=== PATIENT | female | born 1955 | race Caucasian/White ===

== ENCOUNTER 2020-06-13 14:22 | Outpatient (REF) | payer MEDICAID, SELFPAY ==
[2020-06-13 16:13] LABS: MANUAL DIFF FLAG NO
[2020-06-13 16:14] LABS: Basophils Percent Auto 0.4 % (0-2); Eosinophils Percent Auto 0.6 % (0-4); Hematocrit 40.4 % (37-47); Hemoglobin 12.9 g/dl (12.0-16.0); Imm Gran Abs Auto 0.05 X10*3/uL (0.00-0.03); Lymphocytes Absolute Auto 1.1 X10*3/uL (1.2-4.9); Lymphocytes Percent Auto 23.4 % (20-40); Mean Corpuscular HGB Conc 31.9 g/dl (31.0-35.0); Mean Corpuscular Hemoglobin 31.4 pg (27.0-33.0); Mean Corpuscular Volume 98.3 fL (80-98); Mean Platelet Volume 9.6 fL (9.4-12.3); Monocytes Absolute Auto 0.5 X10*3/uL (0.1-1.2); Monocytes Percent Auto 11.2 % (2-11); Neutrophils Absolute Auto 3.1 X10*3/uL (2.0-8.3); Neutrophils Percent Auto 63.4 % (45-73); Platelet Count 256 X10*3/uL (160-400); Red Blood Count 4.11 X10*6/uL (4.20-5.50); Red Cell Distribution Width 14.4 % (11.0-16.0); White Blood Count 4.8 X10*3/uL (4.8-10.8)
[2020-06-13 16:38] LABS: C Reactive Protein 0.18 mg/dL (< or = 0.50)
[2020-06-13 20:01] LABS: Alanine Aminotransferase 20 U/L (0-31); Albumin Level 4.8 g/dL (3.5-5.0); Alkaline Phosphatase 52 U/L (39-117); Anion Gap 15 (12-20); Aspartate Amino Transferase 16 U/L (5-31); Blood Urea Nitrogen 6 mg/dL (9-16); Calcium 9.3 mg/dL (8.4-10.2); Carbon Dioxide 26 mmol/L (22-29); Chloride 103 mmol/L (96-108); Estimated Glomerular Filt Rate > 60; Glucose Random 151 mg/dL (60-115); Potassium 4.1 mmol/l (3.3-5.1); Sodium 140 mmol/L (135-145); Total Protein 7.3 g/dL (6.5-8.0)
== END 2020-06-13 14:23 | disposition home or self-care (01) ==
LOC: HO.LAB 14:22
PROVIDERS: PCP Nurse Practitioner; Referring Provider Nurse Practitioner; Visit Provider Student in an Organized Health Care Education/Training Program
DX: M05.9 Rheumatoid arthritis with rheumatoid factor, unspecified (principal); M17.0 Bilateral primary osteoarthritis of knee; Z79.899 Other long term (current) drug therapy
CPT/HCPCS: 36415; 80053; 85025; 86140; 99214

== ENCOUNTER 2020-09-12 13:36 | Outpatient (REF) | payer MEDICAID, SELFPAY ==
[2020-09-12 14:48] LABS: MANUAL DIFF FLAG NO
[2020-09-12 15:01] LABS: Basophils Percent Auto 0.3 % (0-2); Eosinophils Absolute Auto 0.1 X10*3/uL (0.0-0.4); Hematocrit 42.4 % (37-47); Hemoglobin 13.7 g/dl (12.0-16.0); Imm Gran Abs Auto 0.04 X10*3/uL (0.00-0.03); Imm Gran Pct Auto 0.7 % (0.0-0.4); Lymphocytes Absolute Auto 0.8 X10*3/uL (1.2-4.9); Lymphocytes Percent Auto 12.6 % (20-40); Mean Corpuscular HGB Conc 32.3 g/dl (31.0-35.0); Mean Corpuscular Hemoglobin 32.3 pg (27.0-33.0); Mean Platelet Volume 9.6 fL (9.4-12.3); Monocytes Absolute Auto 0.6 X10*3/uL (0.1-1.2); Monocytes Percent Auto 9.7 % (2-11); Neutrophils Absolute Auto 4.6 X10*3/uL (2.0-8.3); Neutrophils Percent Auto 75.7 % (45-73); Platelet Count 259 X10*3/uL (160-400); Red Blood Count 4.24 X10*6/uL (4.20-5.50); Red Cell Distribution Width 14.6 % (11.0-16.0); White Blood Count 6.1 X10*3/uL (4.8-10.8)
[2020-09-12 15:17] LABS: Alanine Aminotransferase 22 U/L (0-31); Albumin Level 4.7 g/dL (3.5-5.0); Alkaline Phosphatase 59 U/L (39-117); Anion Gap 16 (12-20); Aspartate Amino Transferase 19 U/L (5-31); Bilirubin Total 1.3 mg/dL (0.0-1.0); Blood Urea Nitrogen 11 mg/dL (9-16); C Reactive Protein 0.12 mg/dL (< or = 0.50); Calcium 9.4 mg/dL (8.4-10.2); Carbon Dioxide 26 mmol/L (22-29); Chloride 102 mmol/L (96-108); Estimated Glomerular Filt Rate > 60; Glucose Random 175 mg/dL (60-115); Potassium 4.3 mmol/l (3.3-5.1); Sodium 140 mmol/L (135-145); Total Protein 7.5 g/dL (6.5-8.0)
[2020-09-12 15:45] LABS: Erythrocyte Sedimentation Rate 7 MM/HR (0-20)
== END 2020-09-12 13:37 | disposition home or self-care (01) ==
LOC: HO.LAB 13:36
PROVIDERS: PCP Nurse Practitioner; Referring Provider Nurse Practitioner; Visit Provider Student in an Organized Health Care Education/Training Program
DX: M05.9 Rheumatoid arthritis with rheumatoid factor, unspecified (principal); Z79.899 Other long term (current) drug therapy
CPT/HCPCS: 36415; 80053; 85025; 85652; 86140; 99212

== ENCOUNTER 2020-12-10 12:21 | Outpatient (REF) | payer MEDICARE, MEDICAID, SELFPAY ==
[2020-12-10 13:50] LABS: MANUAL DIFF FLAG NO
[2020-12-10 13:56] LABS: Basophils Percent Auto 0.6 % (0-2); Eosinophils Percent Auto 0.6 % (0-4); Hematocrit 41.1 % (37-47); Hemoglobin 13.2 g/dl (12.0-16.0); Imm Gran Abs Auto 0.05 X10*3/uL (0.00-0.03); Imm Gran Pct Auto 0.9 % (0.0-0.4); Lymphocytes Absolute Auto 1.4 X10*3/uL (1.2-4.9); Lymphocytes Percent Auto 26.2 % (20-40); Mean Corpuscular HGB Conc 32.1 g/dl (31.0-35.0); Mean Corpuscular Hemoglobin 31.9 pg (27.0-33.0); Mean Corpuscular Volume 99.3 fL (80-98); Mean Platelet Volume 10.1 fL (9.4-12.3); Monocytes Absolute Auto 0.6 X10*3/uL (0.1-1.2); Monocytes Percent Auto 10.8 % (2-11); Neutrophils Absolute Auto 3.2 X10*3/uL (2.0-8.3); Neutrophils Percent Auto 60.9 % (45-73); Platelet Count 265 X10*3/uL (160-400); Red Blood Count 4.14 X10*6/uL (4.20-5.50); Red Cell Distribution Width 14.5 % (11.0-16.0); White Blood Count 5.3 X10*3/uL (4.8-10.8)
[2020-12-10 14:20] LABS: Alanine Aminotransferase 24 U/L (0-31); Albumin Level 4.6 g/dL (3.5-5.0); Alkaline Phosphatase 54 U/L (39-117); Anion Gap 18 (12-20); Aspartate Amino Transferase 19 U/L (5-31); Bilirubin Total 1.3 mg/dL (0.0-1.0); Blood Urea Nitrogen 12 mg/dL (9-16); C Reactive Protein 0.22 mg/dL (< or = 0.50); Calcium 9.5 mg/dL (8.4-10.2); Carbon Dioxide 22 mmol/L (22-29); Chloride 106 mmol/L (96-108); Estimated Glomerular Filt Rate > 60; Glucose Random 177 mg/dL (60-115); Sodium 142 mmol/L (135-145); Total Protein 7.2 g/dL (6.5-8.0)
[2020-12-10 14:40] LABS: Erythrocyte Sedimentation Rate 10 MM/HR (0-20)
== END 2020-12-10 12:22 | disposition home or self-care (01) ==
LOC: HO.LAB 12:21
PROVIDERS: Visit Provider Student in an Organized Health Care Education/Training Program
DX: M05.9 Rheumatoid arthritis with rheumatoid factor, unspecified (principal); Z79.899 Other long term (current) drug therapy
CPT/HCPCS: 36415; 80053; 85025; 85652; 86140; 99212

== ENCOUNTER 2021-03-19 12:34 | Outpatient (REF) | payer MEDICARE, MEDICAID, SELFPAY ==
[2021-03-19 13:58] LABS: MANUAL DIFF FLAG NO
[2021-03-19 14:05] LABS: Basophils Percent Auto 0.4 % (0-2); Eosinophils Percent Auto 0.6 % (0-4); Hematocrit 40.7 % (37-47); Hemoglobin 13.3 g/dl (12.0-16.0); Imm Gran Abs Auto 0.06 X10*3/uL (0.00-0.03); Imm Gran Pct Auto 1.1 % (0.0-0.4); Lymphocytes Absolute Auto 0.9 X10*3/uL (1.2-4.9); Lymphocytes Percent Auto 16.4 % (20-40); Mean Corpuscular HGB Conc 32.7 g/dl (31.0-35.0); Mean Corpuscular Hemoglobin 31.9 pg (27.0-33.0); Mean Corpuscular Volume 97.6 fL (80-98); Mean Platelet Volume 9.6 fL (9.4-12.3); Monocytes Absolute Auto 0.5 X10*3/uL (0.1-1.2); Monocytes Percent Auto 9.8 % (2-11); Neutrophils Absolute Auto 3.8 X10*3/uL (2.0-8.3); Neutrophils Percent Auto 71.7 % (45-73); Platelet Count 231 X10*3/uL (160-400); Red Blood Count 4.17 X10*6/uL (4.20-5.50); Red Cell Distribution Width 14.2 % (11.0-16.0); White Blood Count 5.3 X10*3/uL (4.8-10.8)
[2021-03-19 14:26] LABS: Alanine Aminotransferase 20 U/L (0-31); Albumin Level 4.7 g/dL (3.5-5.0); Alkaline Phosphatase 51 U/L (39-117); Anion Gap 15 (12-20); Aspartate Amino Transferase 20 U/L (5-31); Bilirubin Total 1.5 mg/dL (0.0-1.0); Blood Urea Nitrogen 14 mg/dL (9-16); C Reactive Protein 0.23 mg/dL (< or = 0.50); Calcium 9.8 mg/dL (8.4-10.2); Carbon Dioxide 24 mmol/L (22-29); Chloride 103 mmol/L (96-108); Estimated Glomerular Filt Rate > 60; Glucose Random 142 mg/dL (60-115); Potassium 3.3 mmol/L (3.3-5.1); Sodium 139 mmol/L (135-145); Total Protein 7.3 g/dL (6.5-8.0)
[2021-03-19 14:43] LABS: Erythrocyte Sedimentation Rate 10 MM/HR (0-20)
== END 2021-03-19 12:35 | disposition home or self-care (01) ==
LOC: HO.LAB 12:34
PROVIDERS: Visit Provider Student in an Organized Health Care Education/Training Program
DX: M05.9 Rheumatoid arthritis with rheumatoid factor, unspecified (principal); Z79.899 Other long term (current) drug therapy
CPT/HCPCS: 36415; 80053; 85025; 85652; 86140; 99212

== ENCOUNTER 2021-06-17 13:13 | Outpatient (REF) | payer MEDICARE, MEDICAID, SELFPAY ==
[2021-06-17 14:22] LABS: MANUAL DIFF FLAG NO
[2021-06-17 14:43] LABS: Basophils Percent Auto 0.5 % (0-2); Eosinophils Percent Auto 0.5 % (0-4); Hematocrit 41.7 % (37-47); Hemoglobin 13.4 g/dl (12.0-16.0); Imm Gran Abs Auto 0.06 X10*3/uL (0.00-0.03); Lymphocytes Absolute Auto 0.6 X10*3/uL (1.2-4.9); Lymphocytes Percent Auto 9.9 % (20-40); Mean Corpuscular HGB Conc 32.1 g/dl (31.0-35.0); Mean Corpuscular Hemoglobin 31.2 pg (27.0-33.0); Mean Corpuscular Volume 97.2 fL (80-98); Mean Platelet Volume 9.8 fL (9.4-12.3); Monocytes Absolute Auto 0.6 X10*3/uL (0.1-1.2); Monocytes Percent Auto 10.6 % (2-11); Neutrophils Absolute Auto 4.7 X10*3/uL (2.0-8.3); Neutrophils Percent Auto 77.5 % (45-73); Platelet Count 229 X10*3/uL (160-400); Red Blood Count 4.29 X10*6/uL (4.20-5.50); Red Cell Distribution Width 14.2 % (11.0-16.0)
[2021-06-17 15:07] LABS: Alanine Aminotransferase 25 U/L (0-31); Albumin Level 4.4 g/dL (3.5-5.0); Alkaline Phosphatase 55 U/L (39-117); Anion Gap 15 (12-20); Aspartate Amino Transferase 21 U/L (5-31); Bilirubin Total 1.3 mg/dL (0.0-1.0); Blood Urea Nitrogen 9 mg/dL (9-16); C Reactive Protein 0.35 mg/dL (< or = 0.50); Calcium 9.3 mg/dL (8.4-10.2); Carbon Dioxide 27 mmol/L (22-29); Chloride 104 mmol/L (96-108); Cholesterol 220 mg/dL; Estimated Glomerular Filt Rate > 60; Glucose Random 191 mg/dL (60-115); HDL Cholesterol 54 mg/dL; LDL Cholesterol Calculated 117 mg/dl; Potassium 3.4 mmol/L (3.3-5.1); Sodium 143 mmol/L (135-145); Total Protein 6.9 g/dL (6.5-8.0); Triglycerides 248 mg/dL
[2021-06-17 15:56] LABS: Reflex LDLD? No
[2021-06-17 16:27] LABS: Erythrocyte Sedimentation Rate 10 MM/HR (0-20)
== END 2021-06-17 13:14 | disposition home or self-care (01) ==
LOC: HO.LAB 13:13
PROVIDERS: PCP Nurse Practitioner; Visit Provider Nurse Practitioner Family
DX: M05.9 Rheumatoid arthritis with rheumatoid factor, unspecified (principal); Z79.899 Other long term (current) drug therapy
CPT/HCPCS: 36415; 80053; 80061; 85025; 85652; 86140; 99212

== ENCOUNTER 2021-09-15 13:32 | Outpatient (REF) | payer MEDICARE, MEDICAID, SELFPAY ==
[2021-09-15 14:45] LABS: MANUAL DIFF FLAG NO
[2021-09-15 15:00] LABS: Basophils Percent Auto 0.2 % (0-2); Eosinophils Percent Auto 0.4 % (0-4); Hematocrit 38.3 % (37.0-47.0); Hemoglobin 12.3 g/dl (12.0-16.0); Imm Gran Abs Auto 0.04 X10*3/uL (0.00-0.03); Imm Gran Pct Auto 0.7 % (0.0-0.4); Lymphocytes Absolute Auto 0.1 X10*3/uL (1.2-4.9); Lymphocytes Percent Auto 2.2 % (20-40); Mean Corpuscular HGB Conc 32.1 g/dl (31.0-35.0); Mean Corpuscular Hemoglobin 31.9 pg (27.0-33.0); Mean Corpuscular Volume 99.5 fL (80.0-98.0); Mean Platelet Volume 9.9 fL (9.4-12.3); Monocytes Absolute Auto 0.4 X10*3/uL (0.1-1.2); Monocytes Percent Auto 6.9 % (2-11); Neutrophils Absolute Auto 4.8 x10*3/uL (2.0-8.3); Neutrophils Percent Auto 89.6 % (45-73); Platelet Count 205 X10*3/uL (160-400); Red Blood Count 3.85 X10*6/uL (4.20-5.50); Red Cell Distribution Width 14.5 % (11.0-16.0); White Blood Count 5.4 X10*3/uL (4.8-10.8)
[2021-09-15 15:21] LABS: Alanine Aminotransferase 40 U/L (0-31); Albumin Level 4.5 g/dL (3.5-5.0); Alkaline Phosphatase 47 U/L (39-117); Anion Gap 15 (12-20); Aspartate Amino Transferase 84 U/L (5-31); Bilirubin Total 1.5 mg/dL (0.0-1.0); Blood Urea Nitrogen 7 mg/dL (9-16); C Reactive Protein 0.61 mg/dL (< or = 0.50); Calcium 9.5 mg/dL (8.4-10.2); Carbon Dioxide 27 mmol/L (22-29); Chloride 105 mmol/L (96-108); Estimated Glomerular Filt Rate > 60; Glucose Random 137 mg/dL (60-115); Potassium 3.8 mmol/L (3.3-5.1); Sodium 143 mmol/L (135-145); Total Protein 7.1 g/dL (6.5-8.0)
[2021-09-15 15:35] LABS: Erythrocyte Sedimentation Rate 11 MM/HR (0-20)
== END 2021-09-15 13:33 | disposition home or self-care (01) ==
LOC: HO.LAB 13:32
PROVIDERS: PCP Nurse Practitioner; Visit Provider Nurse Practitioner Family
DX: M05.9 Rheumatoid arthritis with rheumatoid factor, unspecified (principal); Z79.899 Other long term (current) drug therapy
CPT/HCPCS: 36415; 80053; 85025; 85652; 86140; 99212

== ENCOUNTER 2021-12-10 09:45 | Outpatient (REF) | payer MEDICARE, MEDICAID, SELFPAY ==
[2021-12-10 11:05] LABS: Alanine Aminotransferase 27 U/L (0-31); Albumin Level 4.4 g/dL (3.5-5.0); Alkaline Phosphatase 47 U/L (39-117); Anion Gap 14 (12-20); Aspartate Amino Transferase 20 U/L (5-31); Bilirubin Total 1.1 mg/dL (0.0-1.0); Blood Urea Nitrogen 7 mg/dL (9-16); Calcium 9.7 mg/dL (8.4-10.2); Carbon Dioxide 26 mmol/L (22-29); Chloride 104 mmol/L (96-108); Estimated Glomerular Filt Rate > 60; Glucose Random 169 mg/dL (60-115); Potassium 3.7 mmol/L (3.3-5.1); Sodium 140 mmol/L (135-145); Total Protein 7.2 g/dL (6.5-8.0)
[2021-12-10 11:21] LABS: Vitamin D 25-OH Total 34.2 ng/mL (>30)
== END 2021-12-10 09:46 | disposition home or self-care (01) ==
LOC: HO.LAB 09:45
PROVIDERS: PCP Nurse Practitioner; Visit Provider Nurse Practitioner Family
DX: M17.0 Bilateral primary osteoarthritis of knee (principal); R74.8 Abnormal levels of other serum enzymes
CPT/HCPCS: 36415; 80053; 82306

== ENCOUNTER → 2021-12-18 12:36 | Outpatient (BNVA) | payer MEDICARE, MEDICAID, SELFPAY | PROVIDERS: PCP Nurse Practitioner; Visit Provider Nurse Practitioner Family | DX: M05.9 Rheumatoid arthritis with rheumatoid factor, unspecified (principal); Z79.899 Other long term (current) drug therapy | CPT/HCPCS: Q3014 ==

== ENCOUNTER → 2022-03-19 12:18 | Outpatient (BNVA) | payer MEDICARE, MEDICAID, SELFPAY | PROVIDERS: PCP Nurse Practitioner; Visit Provider Nurse Practitioner Family | DX: M05.9 Rheumatoid arthritis with rheumatoid factor, unspecified (principal); Z79.899 Other long term (current) drug therapy | CPT/HCPCS: Q3014 ==

== ENCOUNTER 2022-03-19 12:47 | Outpatient (REF) | payer MEDICARE, MEDICAID, SELFPAY ==
[2022-03-19 13:40] LABS: MANUAL DIFF FLAG NO
[2022-03-19 13:49] LABS: Basophils Percent Auto 0.5 % (0-2); Eosinophils Percent Auto 0.5 % (0-4); Hematocrit 44.5 % (37.0-47.0); Hemoglobin 14.2 g/dl (12.0-16.0); Imm Gran Abs Auto 0.03 X10*3/uL (0.00-0.03); Imm Gran Pct Auto 0.5 % (0.0-0.4); Lymphocytes Absolute Auto 0.8 X10*3/uL (1.2-4.9); Lymphocytes Percent Auto 14.4 % (20-40); Mean Corpuscular HGB Conc 31.9 g/dl (31.0-35.0); Mean Corpuscular Hemoglobin 30.3 pg (27.0-33.0); Mean Corpuscular Volume 94.9 fL (80.0-98.0); Mean Platelet Volume 10.3 fL (9.4-12.3); Monocytes Absolute Auto 0.7 X10*3/uL (0.1-1.2); Monocytes Percent Auto 11.8 % (2-11); Neutrophils Percent Auto 72.3 % (45-73); Platelet Count 230 X10*3/uL (160-400); Red Blood Count 4.69 X10*6/uL (4.20-5.50); Red Cell Distribution Width 14.4 % (11.0-16.0); White Blood Count 5.6 X10*3/uL (4.8-10.8)
[2022-03-19 14:16] LABS: Alanine Aminotransferase 19 U/L (0-31); Aspartate Amino Transferase 19 U/L (5-31); Estimated Glomerular Filt Rate > 60
[2022-03-19 14:37] LABS: Erythrocyte Sedimentation Rate 9 MM/HR (0-20)
== END 2022-03-19 12:48 | disposition home or self-care (01) ==
LOC: HO.10HDL 12:47
PROVIDERS: Visit Provider Nurse Practitioner Family
DX: M05.9 Rheumatoid arthritis with rheumatoid factor, unspecified (principal); Z79.899 Other long term (current) drug therapy
CPT/HCPCS: 36415; 82565; 84450; 84460; 85025; 85652; 86140

== ENCOUNTER → 2022-06-02 13:21 | Outpatient (BNVA) | payer MEDICARE, MEDICAID, SELFPAY | PROVIDERS: PCP Nurse Practitioner; Visit Provider Nurse Practitioner Family | DX: M05.9 Rheumatoid arthritis with rheumatoid factor, unspecified (principal); Z79.899 Other long term (current) drug therapy | CPT/HCPCS: 99212 ==

== ENCOUNTER → 2022-09-02 13:01 | Outpatient (BNVA) | payer MEDICARE, MEDICAID, SELFPAY | PROVIDERS: PCP Nurse Practitioner; Visit Provider Nurse Practitioner Family | DX: M05.9 Rheumatoid arthritis with rheumatoid factor, unspecified (principal); Z79.899 Other long term (current) drug therapy | CPT/HCPCS: 99212 ==

== ENCOUNTER → 2022-11-10 12:47 | Outpatient (BNVA) | payer MEDICARE, MEDICAID, SELFPAY | PROVIDERS: PCP Nurse Practitioner; Visit Provider Nurse Practitioner Family | DX: M05.9 Rheumatoid arthritis with rheumatoid factor, unspecified (principal); Z79.899 Other long term (current) drug therapy | CPT/HCPCS: 99212 ==

== ENCOUNTER → 2023-03-11 14:24 | Outpatient (BNVA) | payer MEDICARE, MEDICAID, SELFPAY | PROVIDERS: PCP Nurse Practitioner; Visit Provider Student in an Organized Health Care Education/Training Program | DX: M05.9 Rheumatoid arthritis with rheumatoid factor, unspecified (principal); R25.1 Tremor, unspecified; Z79.899 Other long term (current) drug therapy; Z13.820 Encounter for screening for osteoporosis | CPT/HCPCS: 99212 ==

== ENCOUNTER 2023-03-11 14:25 | Outpatient (AMB) | payer MEDICARE, MEDICAID, SELFPAY ==
[2023-03-11 14:24] VITALS: BP 112/66; PULSE 88; TEMP 36.2; O2SAT 94; BMI 29.8
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
== END 2023-03-11 14:55 | disposition home or self-care (01) ==
PROVIDERS: PCP Nurse Practitioner; Visit Provider Student in an Organized Health Care Education/Training Program
DX: M05.79 Rheumatoid arthritis with rheumatoid factor of multiple sites without organ or systems involvement (principal); Z79.899 Other long term (current) drug therapy; Z13.820 Encounter for screening for osteoporosis; R25.1 Tremor, unspecified
CPT/HCPCS: 99214

== ENCOUNTER → 2023-06-10 13:11 | Outpatient (BNVA) | payer MEDICARE, MEDICAID, SELFPAY | PROVIDERS: PCP Nurse Practitioner; Visit Provider Student in an Organized Health Care Education/Training Program ==

== ENCOUNTER 2023-11-24 09:57 | Outpatient (AMB) | payer MEDICARE, MEDICAID, SELFPAY ==
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
[2023-11-24 10:01] VITALS: BP 112/68; PULSE 89; O2SAT 97; BMI 30.7
== END 2023-11-24 10:29 | disposition home or self-care (01) ==
PROVIDERS: PCP Nurse Practitioner; Visit Provider Student in an Organized Health Care Education/Training Program
DX: M05.79 Rheumatoid arthritis with rheumatoid factor of multiple sites without organ or systems involvement (principal); Z79.899 Other long term (current) drug therapy; Z13.820 Encounter for screening for osteoporosis; M54.41 Lumbago with sciatica, right side; G89.29 Other chronic pain
CPT/HCPCS: 99214

== ENCOUNTER → 2023-11-24 09:57 | Outpatient (BNVA) | payer MEDICARE, MEDICAID, SELFPAY | PROVIDERS: PCP Nurse Practitioner; Visit Provider Student in an Organized Health Care Education/Training Program | DX: M05.9 Rheumatoid arthritis with rheumatoid factor, unspecified (principal); Z13.820 Encounter for screening for osteoporosis; M54.41 Lumbago with sciatica, right side; G89.29 Other chronic pain; Z79.899 Other long term (current) drug therapy | CPT/HCPCS: 99212 ==

== ENCOUNTER 2024-05-24 09:54 | Outpatient (AMB) | payer MEDICARE, MEDICAID, SELFPAY ==
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
[2024-05-24 10:02] VITALS: BP 112/60; PULSE 89; O2SAT 99; BMI 31.1
== END 2024-05-24 10:23 | disposition home or self-care (01) ==
PROVIDERS: PCP Nurse Practitioner; Visit Provider Student in an Organized Health Care Education/Training Program
DX: M05.79 Rheumatoid arthritis with rheumatoid factor of multiple sites without organ or systems involvement (principal); Z79.899 Other long term (current) drug therapy; Z13.820 Encounter for screening for osteoporosis
CPT/HCPCS: 99214

== ENCOUNTER → 2024-05-24 09:54 | Outpatient (BNVA) | payer MEDICARE, MEDICAID, SELFPAY | PROVIDERS: PCP Nurse Practitioner; Visit Provider Student in an Organized Health Care Education/Training Program | DX: M05.9 Rheumatoid arthritis with rheumatoid factor, unspecified (principal); Z79.899 Other long term (current) drug therapy; Z13.820 Encounter for screening for osteoporosis | CPT/HCPCS: 99212 ==

== ENCOUNTER 2024-09-06 09:45 | Outpatient (AMB) | payer MEDICARE, MEDICAID, SELFPAY ==
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
[2024-09-06 10:32] VITALS: BP 112/64; PULSE 85; O2SAT 96; BMI 31.1
== END 2024-09-06 10:56 | disposition home or self-care (01) ==
PROVIDERS: PCP Nurse Practitioner; Visit Provider Student in an Organized Health Care Education/Training Program
DX: M05.79 Rheumatoid arthritis with rheumatoid factor of multiple sites without organ or systems involvement (principal); Z79.899 Other long term (current) drug therapy; Z13.820 Encounter for screening for osteoporosis
CPT/HCPCS: 99214

== ENCOUNTER 2024-09-06 11:06 | Outpatient (REF) | payer MEDICARE, MEDICAID, SELFPAY ==
[2024-09-06 12:56] LABS: MANUAL DIFF FLAG NO
[2024-09-06 13:06] LABS: Basophils Absolute Auto 0.1 X10*3/uL (0.0-0.2); Eosinophils Absolute Auto 0.1 X10*3/uL (0.0-0.4); Hematocrit 45.4 % (37.0-47.0); Hemoglobin 14.3 g/dl (12.0-16.0); Imm Gran Abs Auto 0.04 X10*3/uL (0.00-0.03); Imm Gran Pct Auto 0.8 % (0.0-0.4); Lymphocytes Absolute Auto 0.6 X10*3/uL (1.2-4.9); Lymphocytes Percent Auto 12.2 % (20-40); Mean Corpuscular HGB Conc 31.5 g/dl (31.0-35.0); Mean Corpuscular Hemoglobin 30.7 pg (27.0-33.0); Mean Corpuscular Volume 97.4 fL (80.0-98.0); Mean Platelet Volume 9.4 fL (9.4-12.3); Monocytes Absolute Auto 0.6 X10*3/uL (0.1-1.2); Neutrophils Absolute Auto 3.5 x10*3/uL (2.0-8.3); Platelet Count 241 X10*3/uL (160-400); Red Blood Count 4.66 X10*6/uL (4.20-5.50); Red Cell Distribution Width 15.1 % (11.0-16.0); White Blood Count 4.8 X10*3/uL (4.8-10.8)
[2024-09-06 13:12] LABS: Alanine Aminotransferase 16 U/L (0-31); Albumin Level 4.7 g/dL (3.5-5.0); Alkaline Phosphatase 59 U/L (39-117); Anion Gap 11 (12-20); Aspartate Amino Transferase 23 U/L (5-31); Bilirubin Total 0.9 mg/dL (0.0-1.0); Blood Urea Nitrogen 9 mg/dL (9-16); C Reactive Protein < 0.10 mg/dL (< or = 0.50); Calcium 9.3 mg/dL (8.4-10.2); Carbon Dioxide 28 mmol/L (22-29); Chloride 108 mmol/L (96-108); Estimated Glomerular Filt Rate > 60; Glucose Random 163 mg/dL (60-115); Potassium 3.9 mmol/L (3.3-5.1); Sodium 143 mmol/L (135-145); Total Protein 7.7 g/dL (6.5-8.0)
[2024-09-06 13:49] LABS: Erythrocyte Sedimentation Rate 6 MM/HR (0-20)
== END 2024-09-06 11:07 | disposition home or self-care (01) ==
LOC: HO.10HDL 11:06
PROVIDERS: Visit Provider Student in an Organized Health Care Education/Training Program
DX: M05.9 Rheumatoid arthritis with rheumatoid factor, unspecified (principal); Z79.899 Other long term (current) drug therapy
CPT/HCPCS: 36415; 80053; 85025; 85652; 86140

== ENCOUNTER 2025-01-11 13:03 | Outpatient (AMB) | payer MEDICARE, MEDICAID, SELFPAY ==
--- NOTE | 2025-01-11 13:10 | A.OFFVIS_ITS ---
Intake Visit Reasons: RA Intake Note: Patient presents for RA follow up. Allergies acetaminophen [Tylenol] Allergy (Intermediate, Verified 09/06/24 10:31) Vomiting penicillin V Allergy (Mild, Verified 09/06/24 10:31) Unknown [facility] Medical History Fracture of right lower leg Osteoarthritis of knees, bilateral Seropositive rheumatoid arthritis Surgical History History of left knee replacement Social History Household Members: None Housing: Apartment Alcohol intake: never Patient Tobacco Use Status: Former Tobacco user Coding
--- NOTE | 2025-01-11 13:18 | A.OFFVIS_ITS ---
Vital Signs 01/11/25 13:19 Height 5 ft Weight 157 lb 13.616 oz BMI 30.8 BP 115/74 Blood Pressure Location Lt brachial Position Sitting Pulse 100 Pulse Source Pulse Oximeter Pulse Oximetry (%) 99 Oxygen Delivery Method Room Air Intake Visit Reasons: RA Intake Note: Patient presents for RA follow up. Allergies acetaminophen [Tylenol] Allergy (Intermediate, Verified 01/11/25 13:19) Vomiting penicillin V Allergy (Mild, Verified 01/11/25 13:19) Unknown Medication List - Last Reconciled 01/11/25 by Elsi Ramirez MD apixaban (Eliquis) 5 mg PO BID blood sugar diagnostic (True Metrix Glucose Test Strip) As directed blood-glucose meter (True Metrix Glucose Meter) As directed calcium carbonate (Tums) 200 mg PO DAILY cholecalciferol (vitamin D3) (Vitamin D3) 25 mcg PO DAILY empagliflozin (Jardiance) 25 mg PO DAILY fluticasone propionate 110 mcg/actuation (Flovent HFA) 2 puffs inhalation BID folic acid 1 mg PO DAILY furosemide 20 mg PO DAILY glipizide ER 2.5 mg PO DAILY lancets (TRUEplus Lancets) As directed levothyroxine 50 mcg PO DAILY methotrexate sodium 15 mg (6 x 2.5 mg) PO QWEEK 90 days olanzapine 20 mg PO BEDTIME olanzapine 5 mg PO DAILY PRN rosuvastatin 10 mg PO DAILY tofacitinib ER (Xeljanz XR) 11 mg PO DAILY HPI Comments Details: Patient is a 69-year-old female with diabetes, hypothyroidism, hyperlipidemia, chronic schizophrenia, hypertension, bilateral knee osteoarthritis and serop ositive rheumatoid arthritis here today for follow up Interval History: Patient last seen 09/06/[address] Mackey. At that time she was following up for her seropositive rheumatoid arthritis on methotrexate 20 mg weekly, Xeljanz 11 mg daily and folic acid daily. Labs and exam were unremarkable with respect to synovitis and methotrexate was reduced to 15 mg once weekly. States that she was admitted to the hospital for constipation and fall. Found to have a blood clot and is currently on Eliquis. Doing well on the decreased dose of methotrexate. No return of symptoms or exacerbation of symptoms Rheumatologic History: Dx RA in the Denies hx of being on injectables On Xeljanz and Mtx as far back as 2019 in these records Current Rheumatology Medication(s): Methotrexate 15 mg once weekly Xeljanz 11 mg daily Folic acid 1 mg daily [facility] Medical History Fracture of right lower leg Osteoarthritis of knees, bilateral Seropositive rheumatoid arthritis Surgical History History of left knee replacement Social History Household Members: None Housing: Apartment Alcohol intake: never Patient Tobacco Use Status: Former Tobacco user Review of Systems Const Details: Review of Systems Constitutional: Denies fever, chills, weight loss ENT: Denies vision changes, eye pain or eye redness, dental caries, dry mouth GI: Denies nausea, vomiting, diarrhea, abdominal pain, change in BM Pulm: Denies SOB, ARTEAGA, hemoptysis, wheezing Cards: Denies chest pain, palpitations Skin: Denies Raynaud's, rash, nail changes, photosensitivity, COMPUGRAPH OPERATOR: Denies headaches, weakness, paresthesias, recurrent falls MSK: as per HPI All other systems reviewed and are unremarkable except noted above Physical Exam Vital Signs: Last Vital Signs Pulse 100 01/11/25 13:19 BP 115/74 01/11/25 13:19 Pulse Ox 99 01/11/25 13:19 Oxygen Delivery Method Room Air 01/11/25 13:19 BMI result Body Mass Index 30.8 Vital signs reviewed Physical Examination CONSTITUITIONAL Patient alert and cooperative. Well appearing and in no apparent painful distress HEENT Conjunctiva and sclera clear. ?Pupils equal round and reactive to light. ?No lymphadenopathy. ? CHEST/RESPIRATORY SYSTEM Normal respiratory effort and able to speak in complete sentences. ?Clear to auscultation bilaterally. ?No crackles, rales, rhonchi, wheezes heard. CARDIAC SYSTEM Regular rate and rhythm. ?S1 and S2 heard no murmurs. ?Radial pulses intact bilaterally MSK Hands: ?Able to make a fist bilaterally. Synovial hypertrophy noted to bilateral 2nd-4th MCPs without TTP. Herbeden's nodes noted without other deformities Wrists: ?Decreased ROM bilaterally. ?No tenderness to palpation or synovitis noted to the wrists. Elbows: Full range of motion without pain. No tenderness, weakness, swelling, in creased warmth or erythema. Shoulders: Full range of active range of motion without pain. No tenderness, weakness, swelling, increased warmth or erythema. Knees: ?Limited ROM to the right knee. Without TTP of the joint. Also limited ROM to the left knee but significantly better than the right Ankles: Full range of motion. ?No tenderness, swelling, increased warmth or erythema.? Feet: ?Negative squeeze test. ?No tenderness to palpation or swelling of the MTPs. Tender points:?No tenderness to palpation of the bilateral trapezius, supraspinatus, greater trochanters, anterior costochondral junctions, bilateral gluteal areas, bilateral suboccipital muscle insertions SKIN Skin intact without rashes. Results Reviewed Results Reviewed: Laboratory Tests 09/06/24 11:12 WBC 4.8 RBC 4.66 Hgb 14.3 Hct 45.4 Plt Count 241 ESR 6 Sodium 143 Potassium 3.9 Chloride 108 Carbon Dioxide 28 BUN 9 Creatinine 0.66 AST 23 ALT 16 Alkaline Phosphatase 59 C-Reactive Protein < 0.10 Assessment & Plan Assessment & Plan (1) Seropositive rheumatoid arthritis: Code(s): M05.9 - Rheumatoid arthritis with rheumatoid factor, unspecified Category: Medical Plan: #Seropositive RA Patient is a 69 y.o. female with seropositive RA here today for follow up. Currently in remission on current regimen Plan - Xeljanz 11mg daily - Methotrexate 15 mg weekly - Folic acid 1mg - Labs: CBC, CMP, ESR, CRP, Hepatitis panel and T spot - RTC 4 months - Labs before visit: CBC, CMP, ESR, CRP (2) Osteoporosis: Comment: DEXA 05/2024: AP Spine -2.9, Left femur neck -2.9, Left femur total -2.8 Code(s): M81.0 - Age-related osteoporosis without current pathological fracture Category: Medical Qualifiers: Osteoporosis type: age-related Presence of current pathological fracture: without current pathological fracture Qualified Code(s): M81.0 - Age- related osteoporosis without current pathological fracture Plan: #Osteoporosis Patient with osteoporosis as per DEXA scan done in May. We will start her on alendronate. Patient would prefer daily alendronate versus weekly alendronate Plan - Alendronate 10mg daily - Vitamin D supplementation - Rpt DEXA 2025 (3) Osteoarthritis of knees, bilateral: Code(s): M17.0 - Bilateral primary osteoarthritis of knee Category: Medical Qualifiers: Osteoarthritis type: primary Qualified Code(s): M17.0 - Bilateral primary osteoarthritis of knee Plan: #OA bilateral knees Has flexion contracture of the right knee. Not interested in PT Encouraged continued activity as best as she can Uses a walker (4) skilled nursing methotrexate user: Code(s): Z79.899 - Other shelter (current) drug therapy Category: Medical Plan: #Long-term Current Use of Methotrexate Discussed with patient the benefits and risks of methotrexate for managing their rheumatic condition Benefits include reduced pain, reduced mortality, maintenance of remission and reduction of flares Risks include oral ulcers, photosensitivity, hepatotoxicity, hematologic toxicity, pneumonitis, flu-like symptoms (especially day after administration), nodulosis, lymphomas ? Limit alcohol and avoid Bactrim ? Monitoring: ?CBC, BMP, LFTs every 3-4 months and hepatitis serologies as needed (5) Long-term current use of Janus kinase inhibitor: Code(s): Z79.622 - termite control representative (current) use of Janus kinase inhibitor Plan: #Long-term Use of LEIDY inhibitor : Xeljanz Discussed with patient the benefits and risks of LEIDY inhibitors for the management of the rheumatic condition Benefits include reduce pain, maintenance of remission and reduction of flares Risks include thromboembolic events, skin cancer and nonmelanoma skin cancers, other forms of cancer, cardiovascular alcohol and mortality Advise patient that they are to hold the medication and for up to 1 week after a febrile illness or an open skin wound Plan I spent 30 minutes reviewing the record and labs, taking a history, examining the patient, discussing the treatment plan, ordering diagnostic work up and documenting in the medical record Orders: Orders Erythrocyte Sedimentation Rate Today E55.9 - Vitamin D deficiency, unspecified, M05.9 - Rheumatoid arthritis with rheumatoid factor, unspecified Hepatitis A,B,C Profile Today E55.9 - Vitamin D deficiency, unspecified, M05.9 - Rheumatoid arthritis with rheumatoid factor, unspecified T Spot TB Today E55.9 - Vitamin D deficiency, unspecified, M05.9 - Rheumatoid arthritis with rheumatoid factor, unspecified Vitamin D 25-OH (D2 and D3) Today E55.9 - Vitamin D deficiency, unspecified, M05.9 - Rheumatoid arthritis with rheumatoid factor, unspecified Complete Blood Count Auto Diff 4 Months E55.9 - Vitamin D deficiency, unspecified, M05.9 - Rheumatoid arthritis with rheumatoid factor, unspecified C Reactive Protein 4 Months E55.9 - Vitamin D deficiency, unspecified, M05.9 - Rheumatoid arthritis with rheumatoid factor, unspecified Erythrocyte Sedimentation Rate 4 Months E55.9 - Vitamin D deficiency, unspecified, M05.9 - Rheumatoid arthritis with rheumatoid factor, unspecified Vitamin D 25-OH (D2 and D3) 4 Months E55.9 - Vitamin D deficiency, unspecified, M05.9 - Rheumatoid arthritis with rheumatoid factor, unspecified Complete Blood Count Auto Diff Today E55.9 - Vitamin D deficiency, unspecified, M05.9 - Rheumatoid arthritis with rheumatoid factor, unspecified Comprehensive Met. Panel Today E55.9 - Vitamin D deficiency, unspecified, M05.9 - Rheumatoid arthritis with rheumatoid factor, unspecified C Reactive Protein Today E55.9 - Vitamin D deficiency, unspecified, M05.9 - Rheumatoid arthritis with rheumatoid factor, unspecified Comprehensive Met. Panel 4 Months E55.9 - Vitamin D deficiency, unspecified, M05.9 - Rheumatoid arthritis with rheumatoid factor, unspecified Medications: New alendronate 10 mg PO DAILY 90 days 90 tabs 1RF M81.0 - Age-related osteoporosis without current pathological fracture Refilled folic acid 1 mg PO DAILY 90 tabs 0RF tofacitinib ER (Xeljanz XR) 11 mg PO DAILY 90 tabs 1RF M05.9 - Rheumatoid arthritis with rheumatoid factor, unspecified methotrexate sodium 15 mg (6 x 2.5 mg) PO QWEEK 90 days 78 tabs 1RF M05.9 - Rheumatoid arthritis with rheumatoid factor, unspecified Coding Level of Care Code Est Pt Level 4 (47977) Complex EM visit Add On G2211 Diagnoses Seropositive rheumatoid arthritis M05.9 Age-related osteoporosis without current pathological fracture M81.0 Osteoporosis type: age-related Presence of current pathological fracture: without current pathological fracture Primary osteoarthritis of both knees M17.0 Osteoarthritis type: primary skilled nursing methotrexate user Z79.899 Long-term current use of Janus kinase inhibitor Z79.622
[2025-01-11 13:19] VITALS: BP 115/74; PULSE 100; O2SAT 99; BMI 30.8
== END 2025-01-11 13:55 | disposition home or self-care (01) ==
LOC: HO.RHE 13:03
PROVIDERS: PCP Nurse Practitioner; Visit Provider Student in an Organized Health Care Education/Training Program
DX: M05.79 Rheumatoid arthritis with rheumatoid factor of multiple sites without organ or systems involvement (principal); M81.0 Age-related osteoporosis without current pathological fracture; M17.0 Bilateral primary osteoarthritis of knee; Z79.899 Other long term (current) drug therapy; Z79.622 Long term (current) use of Janus kinase inhibitor
CPT/HCPCS: 99214; G2211

== ENCOUNTER → 2025-01-11 13:03 | Outpatient (BNVA) | payer MEDICARE, MEDICAID, SELFPAY | PROVIDERS: PCP Nurse Practitioner; Visit Provider Student in an Organized Health Care Education/Training Program | DX: M05.9 Rheumatoid arthritis with rheumatoid factor, unspecified (principal); M81.0 Age-related osteoporosis without current pathological fracture; M17.0 Bilateral primary osteoarthritis of knee; Z79.899 Other long term (current) drug therapy; Z79.622 Long term (current) use of Janus kinase inhibitor | CPT/HCPCS: 99212 ==

== ENCOUNTER 2025-06-21 10:45 | Outpatient (REF) | payer MEDICARE, MEDICAID, SELFPAY ==
--- OUTSIDE RECORDS SUMMARY | 2025-06-21 13:15 | XMS_ITS | Data Portability ---
Author Organization [place] [facility], [facility] Address [address] [place] [address] Care Team Providers Care Benefits Director Name Role Phone [facility] Primary Care Provider [phone] [facility] ([facility]) OTHER Assessment Encounter Date Assessment Date Assessment LastModified by Organization Details LastModified Time 09/18/2021 09/18/2021 Time On Scene with Patient: 00:36:13 Overview/History: [facility] contacted by [facility] for Covid testing given symptoms of productive cough and sore throat. Per patient she has had symptoms for the last 2 days. She finds relief with rescue inhaler and lozenges. She denies any other symptoms such as CP, SOB, fever, chills, nausea, vomiting, or diarrhea. Exam: Patient is well appearing, pleasant, and alert. Uses walker and cane with ambulation whichis her baseline. Lungs were clear to auscultation, no accessory muscles used, breathing pattern normal. Cardiac assessment with RRR, S1, S2, no murmurs or gallop. Oral mucosa moist, no tonsillar edema or erythema, uvula midline. DDx considered, but not limited to: Pneumonia, PND, bronchitis, URI, streptococcal pharyngitis Work up/Results: PCR Covid 19 testing pending and will contact patient with positive finding. X-ray or other imaging not warranted at this time due to normal respiratory and cardiac finding. Oral/Pharynx assessment with no finding indicative for possible strep infection. [email or web address] Not available 09/18/2021 16:20:26 Plan of Treatment Reminders Order Date Submit Date Provider Last Modified By Organization Details Last Modified Time Details Appointments None recorded. Lab unlisted lab - covid-19 (novel coronaviru s) PCR 2021 022 CHRISTI [facility] (Centralized Electronic Ordering - All Locations), Patient Can Go To The Location Of Their Choice, [id number] 11:32:51 Referral None recorded. Procedures None recorded. Surgeries None recorded. Imaging None recorded. Medication Orders None recorded. Patient TargetsNo targets recorded. Patient Instructions Encounter Date Encounter Id Patient Instructions Last Modified By Organization Details Last Modified Time 09/18/2021 [id number] You have been seen for a productive cough and sore throat for the last 2 days. PCR testing for Covid 19 testing for further evaluation. You will be contacted within 1-2 days if findings are positive. Please continue to use your rescue inhaler as needed. Recommend warm water and salt garggle, lozenges, and cool foods such as popsicle for throat discomfort. Please follow up with PCP or seek emergency care with worsening of symptoms, chest pain, shortness of breath, fever over 105 degrees fahrenheit. [email or web address] Not available 09/18/2021 15:17:18 Reason for Referral None Reported. Results Created Date Observation Date Name Description Value Unit Range Abnormal Flag Note LastModifiedBy Organization Detail LastModifiedTime 09/18/19 22 09/21/2021 COVID -19 (NOVE L CORON AVIRU S) PCR covid-19 PCR result (neg) abnormal POSIT WILEY Posit wiley for detec tion of 2019- novel Coron aviru s (2018 -nCo ) by qRT-P CR. Carlita iniguez to the [facility]. This test has been autho rized by the FDA under an Emerg ency Use Autho rizat ion (EUA) for use by autho rized labor atori es. Test perfo rmed by Clini taylor [facility] at the [facility] and Gene tyler, [address] [place] [address] . CLIA ID: [id number] , CAP: [id number]. Medic al Direc tor: Zaida Rendon, PhD [facility] (NOTE ) The CRSP SARS- CoV-2 Real- time Rever se Trans cript ase (RT)- PCR Diagn ostic Assay is a real- time RT-PC R test inten ded for the quali tativ e detec tion of nucle ic acid from the SARS- CoV-2 in nasop haryn geal and oroph aryng eal swabs colle cted from indiv idual s who may have contr acted the virus . Testi ng is limit ed to the Clini taylor [facility] Plat[facility] orm at the [facility] tut which is certi fied under the Clini taylor Labor atory Impro vemen t Amend ments of 1987 (CLIA ), 42 U.S.C . ?263a , to perfo rm high compl exity tests . = Posit wiley resul ts are indic ative of activ e infec tion with SARS- CoV-2 but do not rule out bacte rial infec tion or co-in fecti on with other virus es. The agent detec hira may not be the defin ite cause of disea se. In addit ion, nucle ic acid detec tion can persi st follo wing clear ance of activ e viral repli catio n. Labor atori es withi n the [place] and its evelyn jared s are requi red to repor t all posit wiley resul ts to the appro priat e publi c healt h autho ritie s. = Negat wiley resul ts do not precl ude SARS- CoV-2 infec tion and shoul d not be used as the sole basis for patie nt treat ment or other patie nt manag ement decis ions. Negat wiley resul ts must be combi samantha with clini taylor obser vatio ns, patie nt histo ry, and epide miolo gical infor matio n. Not Available [facility] (Centralized Electronic Ordering - All Locations) Patient Can Go To The Location Of Their Choice, [id number] 09/21/2021 11:32:51 Result Notes None recorded. Problems Name Problem SNOMED Code Status Onset Date Resolution Date Notes Provider Name and Address Organization Details Recorded Time Diabetes mellitus 10294688 Active 2021 JUAN Nunez [address] [place], [address], [place] [facility] 15:18:17 Hypothyroidis m 51719870 Active 2021 JUAN Nunez [address] [place], [address], [place] [facility] 2 15:18:32 Problem Notes None recorded. Medical Equipment None Reported. Allergies Allergen ID Allergen Name Allergen Category Reaction Reaction Severity Criticality Documentation Date Start Date Code Code System Note Provider Name and Address Organization Details Recorded Time 155078 acetamino phen medicatio n diarrhea Not available Not available 09/22/2021 161 RxNorm Ariana Perez NP [address], [place], [address], [place] [facility] 2 13:30:54 855752 Product containin g penicilli n (product) medicatio n vomiting Not available Not available 09/22/2021 96518 8001 SNOMED Ariana Perez NP [address], [place], [address], [place] [facility] 2 13:31:14 Medications Name Sig Start Date Stop Date Status Note LastModified by Organization Details LastModified Time metformin 500 mg tablet TAKE 1 TABLET BY MOUTH TWICE DAILY WITH food active Not Available Not Available No t Available glyburide 5 mg tablet TAKE 1 TABLET BY MOUTH DAILY active Not Available Not Available No t Available FreeStyle Lancets 28 gauge USE TO test blood sugar THREE TIMES DAILY DIRECTED active Not Available Not Available No t Available simvastatin 40 mg tablet TAKE 1 TABLET BY MOUTH DAILY active Not Available Not Available No t Available levothyroxi ne 100 mcg tablet TAKE 1 TABLET BY MOUTH DAILY active Not Available Not Available No t Available methotrexat e sodium 2.5 mg tablet TAKE 8 tablets BY MOUTH ONCE A WEEK active Not Available Not Available No t Available ferrous sulfate 325 mg (65 mg iron) tablet TAKE 1 TABLET BY MOUTH DAILY active Not Available Not Available No t Available folic acid 1 mg tablet TAKE 1 TABLET BY MOUTH DAILY active Not Available Not Available No t Available olanzapine 20 mg tablet Take 1 tablet by mouth at bedtime active Not Available Not Available No t Available Ventolin HFA 90 mcg/actuati on aerosol inhaler INHALE 1 TO 2 PUFFS BY MOUTH EVERY 4 TO 6 HOURS active Not Available Not Available No t Available Vitamin D3 25 mcg (1,000 unit) capsule TAKE 1 CAPSULE BY MOUTH ONCE DAILY active Not Available Not Available No t Available rosuvastati n 10 mg tablet TAKE 1 TABLET BY MOUTH DAILY 09/18 completed Not Available Not Available Not Available FreeStyle Lite Strips USE TO test blood sugar THREE TIMES DAILY DIRECTED active Not Available Not Available No t Available Xeljanz XR 11 mg tablet,exte nded release TAKE 1 TABLET BY MOUTH DAILY active Not Available Not Available No t Available Vitals Date Recorded Oxygen saturation Oxygen saturation in Arterial blood by Pulse oximetry Body temperature Respiratory rate Heart rate Systolic And Diastolic Provider Name and Address Organization Details Last Updated DateTime 2 95 % 95 % 100.3 [degF] 18 /min 104 /min 108/62 mm[Hg] Not Available [facility] 2 14:34:35 Social History None recorded. Functional Status None recorded. Mental Status None recorded. Family History Nothing Reported. Medical History Condition Response Diabetes Y Coronary Artery Disease N CHF N Parkinson's Disease N Cancer N Dementia N Stroke N Hypothyroidism Y Depression Y COPD N Asthma N High Cholesterol N Rheumatoid Arthritis N Pulmonary Embolism N Hypertension N A-fib N Osteoporosis N Kidney Disease N Gynecological HistoryNo gynecological history recorded. Obstetrics History GPAL:G 0 P 0 0 0 0 Past Encounters Encounter ID Performer Location Encounter Start Date Encounter Closed Date Diagnosis/Indication Diagnosis SNOMED-CT Code Diagnosis ICD10 Code Diagnosis IMO Codes Diagnosis Note [id number] February JUAN Nunez [facility] [address] [facility] [address] 09/18/2021 14:26:36 09/21/2021 00:14:21 Productive cough 84317330 R05.9 Pain in throat 562854136 R07.0 Health Concerns Section Related Observation LastModified by Organization Detai ls LastModified Time None Recorded Concern Status LastModified by Organization Details LastModified Time None Recorded Advance Directives Directive None Recorded Payers Insurance Date Sequence Insurance Name Policy Number Policy Estes Covered Member ID Estes Member ID Guarantor Name 09/21/2021 1 MEDICARE [place]: [employer] Josie Meade [id number] Josie Meade 09/18/2021 1 MEDICARE [place]: [employer] Josie Meade [id number] Josie [place] 09/21/2021 1 MEDICARE [place]: [employer] Josie Meade [id number] Josie [place] 09/18/2021 1 *SELF PAY* Josie Meade [id number] Josie Meade 09/21/2021 2 [place] [facility] Josie Meade [id number] Josie Meade Notes Date Note Type Note Provider Name and Address Organization Details Recorded Time 09/18/2021 text/html Contacted by PABLITO Daniels to assess patient for possible Covid infection. Complains of productive cough x 2 days worse in supine and sore throat. She is currently not vaccinated and denies any known Covid exposure. Finds relief with use of rescue inhaler and lozenges. She denies any fever, n/v/d , no sob, or CP. Gill JUAN Nunez [address], [place], [address], [place] [facility] 09/18/2021 16:21:59 OBGyn Episode No OBEpisode recorded.
--- OUTSIDE RECORDS SUMMARY | 2025-06-21 13:15 | XMS_ITS | Patient Health Record ---
Author Organization [facility] Address [address] [place] [address] Care Team Providers Care Accounting Supervisor Name Role Phone Mary MARTINEZ, Wikatie Primary Care Provider Unavaila Yuriy Farmer Unavailable [phone] Jessica Bolton DPM Unavailable Unavailable Allergies Allergen (clinical drug ingredient) Drug/Non Drug Allergy documented on EMR Reaction Allergy Type Onset Date Status Substance with penicillin structure and antibacterial mechanism of action (substance) Penicillins Unknown Drug Allergy Active Reason For Referral No Information Medications Medication SIG (Take, Route, Frequency, Duration) Notes Start Date End Date Status Acetaminophen 500 MG 1 capsule as needed Orally every 6 hrs Active glipiZIDE 2.5 MG 1 tablet 30 minutes before breakfast Orally Once a day Active Folic Acid 1 MG 1 tablet Orally Once a day Active Methotrexate Sodium 2.5 MG 2 tablets Orally Active Jardiance 25 MG 1 tablet Orally Once a day Active Clotrimazole-Betamethason e 1-0.05 % 1 application Externally Twice a day Not-Takin g MiraLax 17 GM/SCOOP 1 scoop mixed with 8 ounces of fluid Orally Once a day Active Reguloid 400 MG as directed Orally Not-Taking Vitamin D3 25 MCG (1000 UT) 1 capsule Orally Once a day Active Xeljanz XR 11 MG 1 tablet Orally Once a day Active Rosuvastatin Calcium 10 MG 1 tablet Orally Once a day Active OLANZapine 20 MG 1 tablet Orally Once a day Active Levothyroxine Sodium 50 MCG 1 tablet in the morning on an empty stomach Orally Once a day Active Furosemide 20 MG 1 tablet Orally Once a day Active Eliquis 5 MG as directed Orally Active Problems Problem Type SNOMED Code ICD Code Onset Dates Problem Status W/U Status Risk Notes Problem Foot ulcer due to type 2 diabetes mellitus (9258696615752) Type 2 diabetes mellitus with foot ulcer (E11.621) Active confirmed Problem Hyperlipidemia (20402520) Hyperlipidemia, unspecified (E78.5) Active confirmed Problem Pain co-occurrent and due to varicose veins of bilateral legs (31938632681308125 ) Varicose veins of bilateral lower extremities with pain (I83.813) Active confirmed Problem Anxiety (54778110) Anxiety (F41.9) Active confi rmed Problem Arthritis (4222568) Arthritis (M19.90) Active confirmed Problem Asthma (291007759) Asthma (J45.909) Active confirmed Problem COPD - Chronic obstructive pulmonary disease (47850420) COPD (chronic obstructive pulmonary disease) (J44.9) Active confirmed Problem Type 2 diabetes mellitus (02521363) Type 2 diabetes mellitus (E11.9) Active confirmed Vital Signs Heart Rate 95 /min 02/22/2025 Temperature 98.2 degrees Fahrenheit 02/22/2025 Respiratory Rate 16 /min 02/22/2025 Blood pressure diastolic 69 mm Hg 02/22/2025 Oximetry 100 % 02/22/2025 Height-cm 154.94 cm 02/22/2025 Weight-kg 65.77 kg 02/22/2025 Height 61 in 02/22/2025 Blood pressure systolic 130 mm Hg 02/22/2025 Weight 145 lbs 02/22/2025 BMI 27.39 kg/m2 02/22/2025 Encounters Encounter Location Date Provider Diagnosis [facility] [address] [address] 02/15/2025 Yuriy Turcios Type 2 diabetes mellitus with foot ulcer E11.621 ; Hyperlipidemia, unspecified E78.5 and Varicose veins of bilateral lower extremities with pain I83.813 [facility] [address] [address] 02/22/2025 Yuriy Turcios Type 2 diabetes mellitus with foot ulcer E11.621 ; Hyperlipidemia, unspecified E78.5 and Varicose veins of bilateral lower extremities with pain I83.813 [facility] [address] [address] 02/14/2025 Yuriy Turcios [facility] [address] [address] 02/16/2025 Yuriy Turcios Assessments Encounter Date Diagnosis (ICD Code) Assessment Notes Treatment Notes Treatment Clinical Notes Section Notes 02/15/2025 Type 2 diabetes mellitus with foot ulcer (ICD-10 - E11.621) Patient educated on importance of glycemic control and impact on wound healing. Reviewed poorly managed hyperglycemia and chronic systemic changes will cause significant delays in wound healing. Optimal DM control-goal for A1c to be less than 8% and/or average blood glucose to be less than 200mg/dl to support healing. Follow up with manager of purchasing for optimal glycemic control and wound healing outcomes A total of minutes was spent on this visit (face to face and non face to face) documenting HPI and performing physical exam, reviewing previous notes and testing, reviewing and adjusting treatment plan, counseling the patient on treatment choices, disease process, expected outcomes, and documenting the findings in the note. Reviewed importance of diabetic foot ulcer prevention, reviewed areas below that aid in prevention of ulcer and healing of ulcer and amputation prevention. use of protective shoes that fit well, daily foot inspection, glycemic control, proper nutritional diet, regular foot exams, vascular assessment, risk assessments, compliance, referrals as indicated to vascular, endocrinology, smoking cessation if applicable, physical activity, off loading.. Will make appropriate referrals to endo, vascular, surgery as indicated.Discussed importance of diabetic foot care. I discussed the importance of keeping pressure off of the ulcer as much as possible and reviewed options in detail (including but not limited to CAM boot, Darco offloading shoe with Peg-assist insole system, total contact cast. No unnecessary ambulation. Encouraged tight glycemic control to aid in healing. 02/15/2025 Hyperlipidemia, unspecified (ICD-10 - E78.5) 02/22/2025 Type 2 diabetes mellitus with foot ulcer (ICD-10 - E11.621) Patient educated on importance of glycemic control and impact on wound healing. Reviewed poorly managed hyperglycemia and chronic systemic changes will cause significant delays in wound healing. Optimal DM control-goal for A1c to be less than 8% and/or average blood glucose to be less than 200mg/dl to support healing. Follow up with manager of purchasing for optimal glycemic control and wound healing outcomes A total of minutes was spent on this visit (face to face and non face to face) documenting HPI and performing physical exam, reviewing previous notes and testing, reviewing and adjusting treatment plan, counseling the patient on treatment choices, disease process, expected outcomes, and documenting the findings in the note. Reviewed importance of diabetic foot ulcer prevention, reviewed areas below that aid in prevention of ulcer and healing of ulcer and amputation prevention. use of protective shoes that fit well, daily foot inspection, glycemic control, proper nutritional diet, regular foot exams, vascular assessment, risk assessments, compliance, referrals as indicated to vascular, endocrinology, smoking cessation if applicable, physical activity, off loading.. Will make appropriate referrals to endo, vascular, surgery as indicated.Discussed importance of diabetic foot care. I discussed the importance of keeping pressure off of the ulcer as much as possible and reviewed options in detail (including but not limited to CAM boot, Darco offloading shoe with Peg-assist insole system, total contact cast. No unnecessary ambulation. Encouraged tight glycemic control to aid in healing. 02/22/2025 Hyperlipidemia, unspecified (ICD-10 - E78.5) 02/15/2025 Varicose veins of bilateral lower extremities with pain (ICD-10 - I83.813) 02/22/2025 Varicose veins of bilateral lower extremities with pain (ICD-10 - I83.813) 02/15/2025 Other On assessment today, Josie is noted to be afebrile and other VS were within normal limits. The patient denies pain or discomfort related to wound. Nursing removed dressings, I assessed her wound to right hallux with no suggestive s/s of an underlying infectious process. There was no foul odor noted. Right hallux diabetic foot ulcer Huizar stage 1 there is significant callus to periwound and wound bed is noted granular tissue noted with minimal draiange noted today After examination, I discussed the indication of debridement and they were agreeable. I then performed debridement to remove devitalized tissues as outlined. She tolerated procedure well. The wound site were then cleansed with saline and thereafter, nursing applied xeroform onto the wound sites and zinc to chas wound areas. The sites were then covered with a dry dressing. Patient was educated on elevating their legs and protect wound site * continue with off loading shoe incert continue performing the above dressing changes daily, has BHN ad reports they doing dressing changes need LAISHA done at next visit S/S of infection reviewed and when to go to ED Patient will have FU in one week I, Yuriy Turcios, MSN, GEOLOGICAL MANAGER, TRANSMISSION SUPERINTENDENT-C, examined, evaluated, and treated the patient. Dr. Bear Dove was available for any questions or concerns that I may have had. Reviewed past medical records, labs, hospitalizations, performed a complete wound assessment to assist in the identification of underlying cause of the wound to individualize treatment plan going forward. Will obtain consultations as indicated from different disciplines if not already involved with current care, including but not limited to: vascular intervention, endocrine, diabetic and nutrition education, infectious disease, dermatology, surgery. Will continue to review and assess interventions including but not limited to orthotics, and compression therapy, LAISHA, labs, and cultures. Documentation will be provided to primary physicians or referring physicians to keep them informed of patients' progress. Due to the many factors that impact the healing of wounds, including but not limited to endocrine disorder, autoimmune disorders, Diabetes, weight gain, cardiovascular disease, poor circulation, and medications, and more not listed, and the role they play on the delay in wound healing, all referrals will be made promptly as well as discussed with patient prior too. We reviewed the importance of multidisciplinary team to maximize wound outcomes.Patient verbalized understand and denies questions or concerns at this time A total of 38 minutes was spent on this visit (face to face and non face to face) documenting HPI and performing physical exam, reviewing previous notes and testing, reviewing and adjusting treatment plan, counseling the patient on treatment choices, disease process, expected outcomes, and documenting the findings in the note. 02/22/2025 Other Josie presents to day for her FU wound care. LAISHA R 0.94 L 1.01 TBI R 0.45 L 0.52 Josie is afebrile with no signs of skin infection. There was 100 % epithelialization noted with no open area to her right hallux. No debridement was performed at today's visit. Educated on daily foot checks, use of white socks made of 100% cotton to aid with moisture control and wound prevention. Importance of glycemic control (see Dm section) recommendations to continue with podiatry appointments to aid with callus formation, onychomycosis. Thank you for allowing us to care for your wound A total of 35 minutes was spent on this visit (face to face and non face to face) documenting HPI and performing physical exam, reviewing previous notes and testing, reviewing and adjusting treatment plan, counseling the patient on treatment choices, disease process, expected outcomes, and documenting the findings in the note. Yuriy Ornelas, MSN, GEOLOGICAL MANAGER, TRANSMISSION SUPERINTENDENT-C, examined, evaluated , and treated the patient. Dr. Bear Dove was available for any questions or concerns that I may have had. Plan Of Treatment No Information Insurance Providers Payer Name Payer Address Payer Phone Subscriber Number Group Number Insured Name Patient Relationship to Insured Coverage Start Date Coverage End Date Medicare [address] [place], [place] [id number] Josie Meade Self - patient is the insured 1 [employer] (Medicaid) [address] [place], [place] [id number] [phone] [id number] Josie Meade Self - patient is the insured 1 Medical (General) History Medical History History ICD Code Type 2 diabetes mellitus E11.9 Arthritis M19.90 Varicose vein of leg I83.90 Asthma J45.909 Hyperlipidemia E78.5 COPD (chronic obstructive pulmonary dise ase) J44.9 Depression F32.A Anxiety F41.9
[2025-06-21 14:22] LABS: MANUAL DIFF FLAG NO
[2025-06-21 14:34] LABS: Hematocrit 45.4 % (37.0-47.0); Hemoglobin 14.1 g/dl (12.0-16.0); Imm Gran Abs Auto 0.03 X10*3/uL (0.00-0.03); Imm Gran Pct Auto 0.5 % (0.0-0.4); Lymphocytes Absolute Auto 0.4 X10*3/uL (1.2-4.9); Mean Corpuscular HGB Conc 31.1 g/dl (31.0-35.0); Mean Corpuscular Hemoglobin 30.3 pg (27.0-33.0); Mean Corpuscular Volume 97.4 fL (80.0-98.0); NRBC Abs Auto 0.000 X10*3/uL (0.0-0.012); NRBC Pct Auto 0.0 /100WBC (0.0-0.2); Platelet Count 251 X10*3/uL (160-400); Red Blood Count 4.66 X10*6/uL (4.20-5.50); White Blood Count 6.3 X10*3/uL (4.8-10.8)
[2025-06-21 14:54] LABS: Alanine Aminotransferase 15 U/L (0-31); Albumin Level 4.8 g/dL (3.5-5.0); Alkaline Phosphatase 62 U/L (39-117); Anion Gap 13 (12-20); Aspartate Amino Transferase 22 U/L (5-31); Blood Urea Nitrogen 11 mg/dL (9-16); Calcium 9.8 mg/dL (8.4-10.2); Carbon Dioxide 29 mmol/L (22-29); Chloride 105 mmol/L (96-108); Estimated Glomerular Filt Rate > 60; Potassium 3.3 mmol/L (3.3-5.1); Sodium 144 mmol/L (135-145); Total Protein 7.6 g/dL (6.5-8.0)
[2025-06-22 04:30] LABS: Hepatitis A Antibody IgM 0.16 Index (0-0.79); ~Hepatitis A Antibody IgM Nonreactive (Nonreactive)
[2025-06-22 04:55] LABS: HBS Num1 0.17 mIU/mL (0-7.99); HBc Num1 0.05 S/CO (0.00-0.79); HBsAGNum1 0.41 S/CO (0.00-0.99); Hepatitis B Surface Antigen Negative (Negative); ~HepC Num1 0.04 S/CO (0.00-0.79); ~Hepatitis B Surface Antibody NONREACTIVE (Nonreactive); ~Hepatitis C Antibody Nonreactive (Nonreactive)
[2025-06-24 02:29] LABS: TS Negative Control Passed; TS Panel A 0; TS Panel B 0; TS Positive Control Passed; TSpotTB Negative (Negative)
[2025-06-26 20:03] LABS: Vitamin D 25-OH, D2 <4 ng/mL; Vitamin D 25-OH, D3 45 ng/mL; Vitamin D 25-OH, Total 45 ng/mL (30-100)
== END 2025-06-21 10:46 | disposition home or self-care (01) ==
LOC: HO.WFDLDS 10:45
PROVIDERS: Visit Provider Student in an Organized Health Care Education/Training Program
DX: M05.9 Rheumatoid arthritis with rheumatoid factor, unspecified (principal); E55.9 Vitamin D deficiency, unspecified
CPT/HCPCS: 36415; 80053; 82306; 85025; 85652; 86140; 86481; 86704; 86706; 86709; 86803; 87340

== ENCOUNTER 2025-06-27 13:45 | Outpatient (AMB) | payer MEDICARE, MEDICAID, SELFPAY ==
--- NOTE | 2025-06-27 13:48 | MHC.OFFVIS ---
Vital Signs 06/27/25 13:56 Height 5 ft Weight 152 lb 5.431 oz BMI 29.7 BP 115/72 Blood Pressure Location Lt brachial Position Sitting Pulse 97 Pulse Source Pulse Oximeter Pulse Oximetry (%) 95 Oxygen Delivery Method Room Air Intake Visit Reasons: RA Intake Note: Patient presents for RA follow up. Allergies acetaminophen (Tylenol) Allergy (Intermediate, Verified 06/27/25 13:55) Vomiting penicillin V Allergy (Mild, Verified 06/27/25 13:55) Unknown Medication List - Last Reconciled 06/27/25 by Elsi Ramirez MD alendronate 10 mg PO DAILY 90 days apixaban (Eliquis) 5 mg PO BID blood sugar diagnostic (True Metrix Glucose Test Strip) As directed blood-glucose meter (True Metrix Glucose Meter) As directed calcium carbonate (Tums) 200 mg PO DAILY cholecalciferol (vitamin D3) (Vitamin D3) 25 mcg PO DAILY empagliflozin (Jardiance) 25 mg PO DAILY fluticasone propionate 110 mcg/actuation (Flovent HFA) 2 puffs inhalation BID folic acid 1 mg PO DAILY furosemide 20 mg PO DAILY glipizide ER 2.5 mg PO DAILY lancets (TRUEplus Lancets) As directed levothyroxine 50 mcg PO DAILY methotrexate sodium 15 mg (6 x 2.5 mg) PO QWEEK 90 days olanzapine 20 mg PO BEDTIME olanzapine 5 mg PO DAILY PRN rosuvastatin 10 mg PO DAILY tofacitinib ER (Xeljanz XR) 11 mg PO DAILY HPI Comments Details: Patient is a 69-year-old female with diabetes, hypothyroidism, hyperlipidemia, chronic schizophrenia, hypertension, bilateral knee osteoarthritis and seropositive rheumatoid arthritis here today for follow up Interval History: Patient last seen 01/11/25 with me - On Methotrexate 15mg PO weekly, Folic acid 1mg daily, Xeljanz 11mg daily - States that she was admitted to the hospital for constipation and fall. Found to have a blood clot and is currently on Eliquis. - Doing well on the decreased dose of methotrexate. No return of symptoms or exacerbation of symptoms - Started on alendronate for osteoporosis Today - Methotrexate 15mg PO weekly, Folic acid 1mg daily, Xeljanz 11mg daily - Did not start the alendronate due to concern for side effects - Doing well with respect to joints - No new complaints Rheumatologic History: Dx RA in the Denies hx of being on injectables On Xeljanz and Mtx as far back as 2019 in these records Current Rheumatology Medication(s): Methotrexate 15 mg once weekly Xeljanz 11 mg daily Folic acid 1 mg daily Alendronate 70mg PO weekly (not taking) [facility] Medical History (Updated 01/11/25 @ 13:55 by Elsi Ramirez MD) Osteoporosis Fracture of right lower leg Osteoarthritis of knees, bilateral Seropositive rheumatoid arthritis Surgical History History of left knee replacement Social History Household Members: None Housing: Apartment Alcohol intake: never Patient Tobacco Use Status: Former Tobacco user Review of Systems Narrative Review of Systems Constitutional: Denies fever, chills, weight loss ENT: Denies vision changes, eye pain or eye redness, dental caries, dry mouth GI: Denies nausea, vomiting, diarrhea, abdominal pain, change in BM Pulm: Denies SOB, ARTEAGA, hemoptysis, wheezing Cards: Denies chest pain, palpitations Skin: Denies Raynaud's, rash, nail changes, photosensitivity, PLANT P[employer]ER: Denies headaches, weakness, paresthesias, recurrent falls MSK: as per HPI All other systems reviewed and are unremarkable except noted above Physical Exam Exam Exam: Vital signs reviewed Physical Examination CONSTITUITIONAL Patient alert and cooperative. Well appearing and in no apparent painful distress Uses a walker for ambulation MSK Hands Right Hand: Able to make a fist. No swelling or tenderness to palpation of the MCPs, PIPs or DIPs. Left Hand: Able to make a fist. No swelling or tenderness to palpation of the MCPs, PIPs or DIPs. Synovial hypertrophy noted across the 2nd and 3rd MCPs bilaterally Herbedens nodes noted bilaterally Wrists Right Wrist: Almost fixed with significantly reduced ROM. No swelling or TTP Left Wrist: Almost fixed with significantly reduced ROM. No swelling or TTP Elbows Right Elbow: Full ROM. No swelling or TTP. No TTP of the medial epicondyle. No TTP of the lateral epicondyle Left Elbow: Full ROM. No swelling or TTP. No TTP of the medial epicondyle. No TTP of the lateral epicondyle Shoulders Right shoulder: No swelling noted. No TTP of the AC joint. No TTP of the subacromial bursa. No TTP of the posterior shoulder Left shoulder: No swelling noted. No TTP of the AC joint. No TTP of the subacromial bursa. No TTP of the posterior shoulder Decreased ROM bilaterally L>R Knees Right knee: No swelling noted. No TTP of the knee joint line. No TTP of pes anserine bursa Left knee: No swelling noted. No TTP of the knee joint line. No TTP of pes anserine bursa. Decreased ROM bilaterally to both flexion and extension R>L Ankles Right ankle: Good ankle dorsiflexion and plantar flexion. No swelling. No TTP of the ankle joint Left ankle: Good ankle dorsiflexion and plantar flexion. No swelling. No TTP of the ankle joint Feet Right foot: Negative squeeze test Left foot: Negative squeeze test Tender points? No tenderness to palpation of the bilateral trapezius, supraspinatus, anterior costochondral junctions, bilateral suboccipital muscle insertions SKIN No rashes Vital Signs: Last Vital Signs Pulse 97 06/27/25 13:56 BP 115/72 06/27/25 13:56 Pulse Ox 95 06/27/25 13:56 Oxygen Delivery Method Room Air 06/27/25 13:56 BMI result Body Mass Index 29.7 Results Reviewed Results Reviewed: Laboratory Tests 09/06/24 06/21/25 11:12 10:48 WBC 6.3 RBC 4.66 Hgb 14.1 Hct 45.4 Plt Count 251 ESR 8 Sodium 144 Potassium 3.3 Chloride 105 Carbon Dioxide 29 BUN 11 Creatinine 0.58 AST 22 ALT 15 C-Reactive Protein < 0.10 0.60 H 25-OH Vitamin D Total 45 Laboratory Tests 06/21/25 10:48 Hepatitis A IgM Ab Nonreactive Hep Bs Antigen Negative Hep Bs Antibody NONREACTIVE Hep B Core Total Ab Nonreactive Hepatitis C Ab (EIA) Nonreactive TB Test (T-Spot) Com Negative DEXA 05/2024 AP spine -2.9 Total hip -2.8 Femoral neck -2.9 Assessment & Plan Assessment & Plan (1) Seropositive rheumatoid arthritis: Code(s): M05.9 - Rheumatoid arthritis with rheumatoid factor, unspecified Category: Medical Plan: #Seropositive RA Patient is a 69 y.o. female with seropositive RA here today for follow up. Currently in remission on current regimen Plan - Xeljanz 11mg daily - Methotrexate 15 mg weekly - Folic acid 1mg - RTC 4 months - Labs before visit: CBC, CMP, ESR, CRP (2) Osteoporosis: Comment: DEXA 05/2024: AP Spine -2.9, Left femur neck -2.9, Left femur total -2.8 Code(s): M81.0 - Age-related osteoporosis without current pathological fracture Category: Medical Qualifiers: Osteoporosis type: age-related Presence of current pathological fracture: without current pathological fracture Qualified Code(s): M81.0 - Age-related osteoporosis without current pathological fracture Plan: #Osteoporosis Patient with osteoporosis as per DEXA scan done in May. Patient did not like the alendronate and does not want to pursue any other bone strengthening agents Discussed the risks of not treating her osteoporosis and she understands and accepts all the risks Plan - Vitamin D supplementation - Rpt DEXA 2025 (3) Osteoarthritis of knees, bilateral: Code(s): M17.0 - Bilateral primary osteoarthritis of knee Category: Medical Qualifiers: Osteoarthritis type: primary Qualified Code(s): M17.0 - Bilateral primary osteoarthritis of knee Plan: #OA bilateral knees Has flexion contracture of the right knee. Not interested in PT Encouraged continued activity as best as she can Uses a walker (4) terminal operator methotrexate user: Code(s): Z79.899 - Other ocean transportation intermediary (current) drug therapy Category: Medical Plan: #Long-term Current Use of Methotrexate Discussed with patient the benefits and risks of methotrexate for managing their rheumatic condition Benefits include reduced pain, reduced mortality, maintenance of remission and reduction of flares Risks include oral ulcers, photosensitivity, hepatotoxicity, hematologic toxicity, pneumonitis, flu-like symptoms (especially day after administration), nodulosis, lymphomas ? Limit alcohol and avoid Bactrim ? Monitoring: ?CBC, BMP, LFTs every 3-4 months and hepatitis serologies as needed (5) Long-term current use of Janus kinase inhibitor: Code(s): Z79.622 - FPC (current) use of Janus kinase inhibitor Plan: #Long-term Use of LEIDY inhibitor : Xeljanz Discussed with patient the benefits and risks of LEIDY inhibitors for the management of the rheumatic condition Benefits include reduce pain, maintenance of remission and reduction of flares Risks include thromboembolic events, skin cancer and nonmelanoma skin cancers, other forms of cancer, cardiovascular alcohol and mortality Advise patient that they are to hold the medication and for up to 1 week after a febrile illness or an open skin wound Plan I spent 30 minutes reviewing the record and labs, taking a history, examining the patient, discussing the treatment plan, ordering diagnostic work up and documenting in the medical record Orders: Orders Complete Blood Count Auto Diff 4 Months Z.89 - Other ocean transportation intermediary (current) drug therapy Comprehensive Met. Panel 4 Months Z. - Other ocean transportation intermediary (current) drug therapy C Reactive Protein 4 Months Z. - Other nursing home (current) drug therapy Erythrocyte Sedimentation Rate 4 Months Z. - Other ocean transportation intermediary (current) drug therapy Vitamin D 25-OH Total 4 Months Z. - Other nursing home (current) drug therapy Medications: Refilled tofacitinib ER (Xeljanz XR) 11 mg PO DAILY 90 tabs 1RF M05.9 - Rheumatoid arthritis with rheumatoid factor, unspecified Discontinued alendronate Discontinued Reason: Doctor's Order 10 mg PO DAILY 90 days 90 tabs 1RF M81.0 - Age-related osteoporosis without current pathological fracture Coding Level of Care Code Est Pt Level 4 (70888) Complex EM visit Add On G2211 Diagnoses Seropositive rheumatoid arthritis M05.9 Age-related osteoporosis without current pathological fracture M81.0 Osteoporosis type: age-related Presence of current pathological fracture: without current pathological fracture Primary osteoarthritis of both knees M17.0 Osteoarthritis type: primary FPC methotrexate user Z79.899 Long-term current use of Janus kinase inhibitor Z79.622
[2025-06-27 13:56] VITALS: BP 115/72; PULSE 97; O2SAT 95; BMI 29.7
--- OUTSIDE RECORDS SUMMARY | 2025-06-27 16:38 | XMS_ITS | Patient Health Record ---
Author Organization [facility] Address [address] [place] [address] Care Team Providers Care Secret Service Agent Name Role Phone Mary MARTINEZ, Prkatei Primary Care Provider Unavaila Yuriy Farmer Unavailable [phone] Jessica Bolton DPM Unavailable Unavailable Allergies Allergen [...] ulcer due to type 2 diabetes mellitus (4878705246235) Type 2 diabetes mellitus with foot ulcer (E11.621) Active confirmed Problem Hyperlipidemia (28362896) Hyperlipidemia, unspecified (E78.5) Active confirmed Problem Pain co-occurrent and due to varicose veins of bilateral legs (51636615185042667 ) Varicose veins of bilateral lower extremities with pain (I83.813) Active confirmed Problem Anxiety (66940638) Anxiety (F41.9) Active confi rmed Problem Arthritis (0800884) Arthritis (M19.90) Active confirmed Problem Asthma (487088852) Asthma (J45.909) Active confirmed Problem COPD - Chronic obstructive pulmonary disease (99860377) COPD (chronic obstructive pulmonary disease) (J44.9) Active confirmed Problem Type 2 diabetes mellitus (93228082) Type 2 diabetes mellitus (E11.9) Active confirmed Vital Signs Heart Rate 95 /min 02/22/2025 Temperature 98.2 degrees Fahrenheit 02/22/2025 Respiratory Rate 16 /min 02/22/2025 Height-cm 154.94 cm 02/22/2025 Oximetry 100 % 02/22/2025 Blood pressure diastolic 69 mm Hg 02/22/2025 Weight-kg 65.77 kg 02/22/2025 Height 61 in 02/22/2025 Blood pressure systolic 130 mm Hg 02/22/2025 Weight 145 lbs 02/22/2025 BMI 27.39 kg/m2 02/22/2025 Encounters Encounter Location Date Provider Diagnosis [facility] [address] [address] 02/15/2025 Yuriy Turcios Type 2 diabetes mellitus with foot ulcer E11.621 ; Hyperlipidemia, unspecified E78.5 and Varicose veins of bilateral lower extremities with pain I83.813 [facility] [address] [address] 02/22/2025 Yuriy Turcios Type 2 diabetes mellitus with foot ulcer E11.621 ; Hyperlipidemia, unspecified E78.5 and Varicose veins of bilateral lower extremities with pain I83.813 [facility] [address] [address] 02/14/2025 Yuriy Turcios [facility] [address] [address] 02/16/2025 Yuriy Turcios Assessments Encounter Date Diagnosis [...] 200mg/dl to support healing. Follow up with high school academic coach for optimal glycemic control and wound healing [...] 200mg/dl to support healing. Follow up with high school academic coach for optimal glycemic control and wound healing [...] in one week I, Yuriy Turcios, MSN, MACHINE ASSISTANT, DESK OFFICER-C, examined, evaluated, and treated the patient. Dr. [...] to day for her FU wound care. LAIHSA R 0.94 L 1.01 TBI R 0.45 [...] findings in the note. Yuriy Ornelas, MSN, MACHINE ASSISTANT, DESK OFFICER-C, examined, evaluated , and treated the patient. Dr. Bear Dove was available for any questions or concerns that I may have had. Plan Of Treatment No Information Insurance Providers Payer Name Payer Address Payer Phone Subscriber Number Group Number Insured Name Patient Relationship to Insured Coverage Start Date Coverage End Date Medicare [address] [place], [place] [id number] Josie Meade Self - patient is the insured 1 [employer] (Medicaid) [address] [place], [place] [id number] [phone] [id number] Josie Meade Self - patient is the insured 1 Medical (General) History Medical History History ICD Code Type 2 diabetes mellitus E11.9 Arthritis M19.90 Varicose vein of leg I83.90 Asthma J45.909 Hyperlipidemia E78.5 COPD (chronic obstructive pulmonary dise ase) J44.9 Depression F32.A Anxiety F41.9
--- OUTSIDE RECORDS SUMMARY | 2025-06-27 16:38 | XMS_ITS | Data Portability ---
Author Organization [place] [facility] Address [address] [place] [address] Care Team Providers Care Movie Operator Name Role Phone [facility] Primary Care Provider [facility] ([facility] OTHER Assessment Encounter Date Assessment Date Assessment LastModified by Organization Details LastModified Time 09/18/2021 09/18/2021 Time On Scene with Patient: 00:36:13 Overview/History: [facility] contacted by [facility] for Covid testing given symptoms of productive [...] no finding indicative for possible strep infection. [email or web address] Not available 09/18/2021 16:20:26 Plan of Treatment Reminders Order Date Submit Date Provider Last Modified By Organization Details Last Modified Time Details Appointments None recorded. Lab unlisted lab - covid-19 (novel coronaviru s) PCR 2021 022 [facility] (Centralized Electronic Ordering - All Locations), Patient Can Go To The Location Of Their Choice, [address] 11:32:51 Referral None recorded. Procedures None recorded. Surgeries None recorded. Imaging None recorded. Medication Orders None recorded. Patient TargetsNo targets recorded. Patient Instructions Encounter Date Encounter Id Patient Instructions Last Modified By Organization Details Last Modified Time 09/18/2021 [id number] You have been seen for a productive [...] of breath, fever over 105 degrees fahrenheit. [email or web address] Not available 09/18/2021 15:17:18 Reason for Referral [...] by qRT-P CR. Carlita iniguez to the [facility]. This test has been autho rized by the FDA under an Emerg ency Use Autho rizat ion (EUA) for use by autho rized labor atori es. Test perfo rmed by [facility] at the [facility] and Gene tyler, [address] [place] [address] . CLIA ID: [id number] , CAP: [id number] 96. Medic al Direc tor: Zaida Rendon, PhD [facility] (NOTE ) The CRSP SARS- CoV-2 Real- [...] limit ed to the [facility] Seque ncing Platf orm at the [facility] tut which is certi fied under [...] Go To The Location Of Their Choice, [id number] 09/21/2021 11:32:51 Result Notes None recorded. Problems Name Problem SNOMED Code Status Onset Date Resolution Date Notes Provider Name and Address Organization Details Recorded Time Diabetes mellitus 43687249 Active 2021 JUAN Nunez [address] [place], [address], [place] [facility] 15:18:17 Hypothyroidis m 42494023 Active 2021 JUAN Nunez [address] [place], [address], [place] [facility] 2 15:18:32 Problem Notes None recorded. Medical Equipment None Reported. Allergies Allergen ID Allergen Name Allergen Category Reaction Reaction Severity Criticality Documentation Date Start Date Code Code System Note Provider Name and Address Organization Details Recorded Time 312416 acetamino phen medicatio n diarrhea Not available Not available 09/22/2021 161 RxNorm Ariana Perez NP [address], [place], [address], [place] [facility] 13:30:54 676974 Product containin g penicilli n (product) medicatio n vomiting Not available Not available 09/22/2021 14171 8001 SNOMED Ariana Perez NP [address], [place], [address], [place] [facility] 13:31:14 [...] CHF N Parkinson's Disease N Cancer N Stroke N Dementia N Hypothyroidism Y COPD N Asthma N Depression Y High Cholesterol N Rheumatoid Arthritis N Pulmonary Embolism N Hypertension N A-fib N Osteoporosis N Kidney Disease N Gynecological HistoryNo gynecological history recorded. Obstetrics History GPAL:G 0 P 0 0 0 0 Past Encounters Encounter ID Performer Location Encounter Start Date Encounter Closed Date Diagnosis/Indication Diagnosis SNOMED-CT Code Diagnosis ICD10 Code Diagnosis IMO Codes Diagnosis Note [id number] February [facility] [address] [facility] [address] 09/18/2021 14:26:36 09/21/2021 00:14:21 Productive cough 29974500 R05.9 Pain in throat 039111693 R07.0 Health Concerns Section Related Observation LastModified by Organization Detai ls LastModified Time None Recorded Concern Status LastModified by Organization Details LastModified Time None Recorded Advance Directives Directive None Recorded Payers Insurance Date Sequence Insurance Name Policy Number Policy Estes Covered Member ID Estes Member ID Guarantor Name 09/21/2021 1 MEDICARE [place]: [employer] Josie Meade [id number] Josie Meade 09/18/2021 1 MED[place]ARE [place]: [employer] Josie Meade [id number] Josie Deshaun 09/21/2021 1 [place]: [employer] Josie Meade [id number] Josie [place] 09/18/2021 1 *SELF PAY* Josie Meade [id number] Josie Meade 09/21/2021 2 [place] [facility] Josie Meade [id number] Josie Meade Notes Date Note Type Note [...] sob, or CP. Gill JUAN Nunez [address], [place], [address], [place] [facility] 09/18/2021 16:21:59 OBGyn Episode No OBEpisode recorded.
== END 2025-06-27 14:39 | disposition home or self-care (01) ==
LOC: HO.RHES 13:45
PROVIDERS: PCP Nurse Practitioner; Visit Provider Student in an Organized Health Care Education/Training Program
DX: M05.9 Rheumatoid arthritis with rheumatoid factor, unspecified (principal); M81.0 Age-related osteoporosis without current pathological fracture; M17.0 Bilateral primary osteoarthritis of knee; Z79.899 Other long term (current) drug therapy; Z79.622 Long term (current) use of Janus kinase inhibitor
CPT/HCPCS: 99214; G2211

== ENCOUNTER → 2025-06-27 13:45 | Outpatient (BNVA) | payer MEDICARE, MEDICAID, SELFPAY | PROVIDERS: PCP Nurse Practitioner; Visit Provider Student in an Organized Health Care Education/Training Program | DX: M05.9 Rheumatoid arthritis with rheumatoid factor, unspecified (principal); M17.0 Bilateral primary osteoarthritis of knee; Z79.899 Other long term (current) drug therapy; Z79.622 Long term (current) use of Janus kinase inhibitor; Z79.01 Long term (current) use of anticoagulants; E03.9 Hypothyroidism, unspecified; I10 Essential (primary) hypertension; E78.5 Hyperlipidemia, unspecified; E11.9 Type 2 diabetes mellitus without complications; Z79.84 Long term (current) use of oral hypoglycemic drugs; Z87.891 Personal history of nicotine dependence | CPT/HCPCS: 99212 ==